=== PATIENT | female | born 1990 | race Two or more races ===

== ENCOUNTER 2016-08-01 18:48 | Emergency (ER) | payer BC ==
[~2016-08-01] VITALS: Ht 170.2 cm; Wt 115.2 kg
[2016-08-01 18:51] VITALS: BP 129/68
== END 2016-08-01 20:47 | disposition home or self-care (01) ==
LOC: ED 20:41
DX: N30.90 Cystitis, unspecified without hematuria (principal); J20.9 Acute bronchitis, unspecified
CPT/HCPCS: 71020; 81001; 87077; 87086; 87186; 99285

== ENCOUNTER 2017-04-12 18:44 | Emergency (ER) | payer BC, MEDICAID ==
[~2017-04-12] VITALS: Ht 170.2 cm; Wt 106.0 kg
[2017-04-12 18:45] VITALS: BP 119/79
== END 2017-04-12 20:23 | disposition home or self-care (01) ==
LOC: ED 20:22
DX: Z48.01 Encounter for change or removal of surgical wound dressing (principal)
CPT/HCPCS: 99283

== ENCOUNTER 2018-06-06 09:48 | Emergency (ER) | payer MEDICAID ==
[~2018-06-06] VITALS: Ht 172.7 cm; Wt 113.0 kg
[2018-06-06 09:55] VITALS: BP 128/81
--- NOTE | 2018-06-06 10:40 | NUR ---
Patient/Caregiver given discharge instructions and they have confirmed that they understand the instructions. Patient ambulatory with steady gait.
== END 2018-06-06 10:45 | disposition home or self-care (01) ==
LOC: ED 10:26
DX: B34.9 Viral infection, unspecified (principal); J30.2 Other seasonal allergic rhinitis
CPT/HCPCS: 71046; 99283